=== PATIENT | male | born 1950 | race Caucasian/White ===

== ENCOUNTER 2016-07-04 18:33 | Emergency (ER) | payer SELFPAY ==
[~2016-07-04] VITALS: Ht 172.7 cm; Wt 72.6 kg
[2016-07-04 19:48] LABS: Basophils # (auto) 0 uL; Basophils % (auto) 0.7 % (0.0-2.0); DEFINITIVE VIEW TRANSMISSION; Eosinophils # (auto) 0.2 uL; Eosinophils % (auto) 3.8 % (0.0-7.0); Hematocrit 42.6 % (41.0-53.0); Hemoglobin 13.8 g/dL (13.5-17.5); Lymphocytes # (auto) 2.1 uL; Lymphocytes % (auto) 50.5 % (10.0-50.0); Mean Corpuscular Hemoglobin 25.5 pg (28.0-32.0); Mean Corpuscular Hgb Conc. 32.3 g/dL (32.0-36.0); Mean Corpuscular Volume 78.9 fL (80.0-100.0); Mean Platelet Volume 8.3 fL (7.4-10.4); Monocytes # (auto) 0.3 uL; Monocytes % (auto) 6.9 % (0.0-12.0); Neutrophils # (auto) 1.6 uL; Neutrophils % (auto) 38.1 % (37.0-80.0); Platelet Count (auto) 335 10^3/uL (140-450); Red Cell Distribution Width 15.1 % (11.6-16.0); White Blood Cell 4.1 10^3/uL (4.4-10.8)
[2016-07-04 20:10] LABS: Albumin 3.4 g/dL (3.4-5.0); BUN/Creatinine Ratio 20.7; Calcium 8.8 mg/dL (8.5-10.1); Potassium 4.1 mmol/L (3.5-5.1)
[2016-07-04 20:13] LABS: Bilirubin, Total 0.2 mg/dL (0.2-1.0); Total Protein 7.5 g/dL (6.4-8.2)
[2016-07-04 20:18] LABS: Acetaminophen < 2.0 ug/mL (10-30); Salicylate < 1.7 mg/dL (2.8-20.0)
[2016-07-05] MEDS: NITROFURANTOIN (MONO) 100 mg CAP PO SCH ×2 (10:00→22:57)
[2016-07-05] MEDS: OLANZapine 5 MG TAB PO SCH (22:58)
[2016-07-06] MEDS: NITROFURANTOIN (MONO) 100 mg CAP PO SCH (10:18)
[2016-07-07] MEDS: NITROFURANTOIN (MONO) 100 mg CAP PO SCH ×2 (05:39→12:44)
[2016-07-07] MEDS: OLANZapine 5 MG TAB PO SCH (05:42)
[2016-07-07 06:47] VITALS: BP 139/94
[2016-07-07] MEDS ORDERED: NITROFURANTOIN (MONO) 100 mg CAP PO ONE (12:35)
== END 2016-07-07 18:11 | disposition short-term general hospital (02) ==
LOC: ER 18:33
DX: F32.9 Major depressive disorder, single episode, unspecified (principal)
CPT/HCPCS: 36415; 80053; 80320; 80329; 85025